=== PATIENT | male | born 1940 | race Caucasian/White ===

== ENCOUNTER 2017-07-10 20:33 | Emergency (ER) | payer MEDICARE ==
--- NOTE | 2017-07-10 21:35 | RAD ---
INDICATION: Cough COMPARISON: Chest x-ray May 27, 2010 TECHNIQUE: PA and lateral dual-energy views were obtained. FINDINGS: Bones/Soft Tissues: There are no acute bony findings. Cardiomediastinal: The cardiomediastinal silhouette is normal. Lungs: There are no infiltrates. Pleura: There are no pleural effusions. Other: None IMPRESSION: NO ACTIVE DISEASE.
[2017-07-11] MEDS ORDERED: Azithromycin TAB* 250 MG ONE (00:05)
--- NOTE | 2017-07-11 00:05 | ED ---
Respiratory - HPI Summary HPI Summary: 77 male presents to ED with complaints of productive cough, aches, feeling illl and run down for the past week. Denies fever/chills. No vomiting or nausea. Denies SOB or trouble breathing, only when having coughing fit. Denies any other complaints. No headache or nasal congestion. Denies respiratory PMHx. Has been around sick contacts. Has been taking tylenol daily, and OTC could and congestion medication. Has helped break up mucus per patient. PRoduction is mucus like without hemoptysis. No chest pain. - History of Current Complaint Chief Complaint: EDUpperRespComplaint Stated Complaint: GENERAL SICKNESS/COUGH Time Seen by Provider: 07/10/17 23:22 Hx Obtained From: Patient Onset/Duration: Sudden Onset, Lasting Weeks, Still Present Timing: Constant Initial Severity: Mild Current Severity: Moderate Pain Intensity: 0 Character: Cough (Productive) Sputum Amount: Small Sputum Color: Clear, Yellow, Green Aggravating Factor(s): URI Alleviating Factor(s): OTC Medications Associated Signs and Symptoms: URI - Allergy/Home Medications Allergies/Adverse Reactions: Allergies Allergy/AdvReac Type Severity Reaction Status Date / Time morphine Allergy Hallucinati Verified 07/10/17 21:00 ons PMH/Surg Hx/FS Hx/Imm Hx Endocrine/Hematology History: Reports: Hx Anticoagulant Therapy - ASA, coumadin Denies: Hx Diabetes, Hx Thyroid Disease Cardiovascular History: Reports: Hx Atrial Fibrillation, Hx Hypertension Denies: Hx Pacemaker/ICD Respiratory History: Denies: Hx Asthma, Hx Chronic Obstructive Pulmonary Disease (COPD) History: Denies: Hx Renal Disease Musculoskeletal History: Reports: Hx Arthritis, Hx Back Problems Neurological History: Denies: Hx Dementia, Hx Seizures Psychiatric History: Reports: Hx Anxiety, Hx Depression Denies: Hx Substance Abuse - Surgical History Surgery Procedure, Year, and Place: right ankle and foot surgery in 1985 - Immunization History Immunizations Up to Date: Yes Infectious Disease History: No Infectious Disease History: Denies: Hx Hepatitis, Hx Human Immunodeficiency Virus (HIV), Traveled Outside the [place] in Last 30 Days - Family History Known Family History: Positive: Diabetes - Social History Alcohol Use: Weekly Alcohol Amount: pt daughter states pt drinks "heavily" Substance Use Type: Reports: None Hx Tobacco Use: Yes Smoking Status (MU): Light Every Day Tobacco Smoker Type: Cigarettes, Cigars Length of Time of Smoking/Using Tobacco: 60 years Review of Systems Constitutional: Negative ENT: Negative Cardiovascular: Negative Positive: Cough Gastrointestinal: Negative All Other Systems Reviewed And Are Negative: Yes Physical Exam Triage Information Reviewed: Yes Vital Signs On Initial Exam: Initial Vitals Temp Pulse Resp BP Pulse Ox 98.9 F 67 20 144/59 97 07/10/17 20:56 07/10/17 20:56 07/10/17 20:56 07/10/17 20:56 07/10/17 20:56 Vital Signs Reviewed: Yes Appearance: Positive: Well-Appearing, No Pain Distress, Well-Nourished Skin: Positive: Warm, Skin Color Reflects Adequate Perfusion, Dry Head/Face: Positive: Normal Head/Face Inspection ENT: Positive: Hearing grossly normal, Pharynx normal, TMs normal, Tonsillar exudate, Uvula midline. Negative: Pharyngeal erythema, Nasal congestion, Tonsillar swelling Neck: Positive: Supple, Nontender, No Lymphadenopathy Respiratory/Lung Sounds: Positive: Clear to Auscultation, Breath Sounds Present , Wheezes - upper, bilateral, clears with cough. Negative: Decreased Breath Sounds, Rales, Rhonchi, Unable to speak in full sentences Cardiovascular: Positive: Normal, RRR, Pulses are Symmetrical in both Upper and Lower Extremities, Murmur, Rub Abdomen Description: Positive: Nontender Bowel Sounds: Positive: Present Musculoskeletal: Positive: Normal Neurological: Positive: Normal Diagnostics - Vital Signs Vital Signs Temp Pulse Resp BP Pulse Ox 07/10/17 23:26 99.4 F 07/10/17 23:14 102.0 F 65 12 157/70 100 07/10/17 20:56 98.9 F 67 20 144/59 97 - Laboratory Lab Results: Lab Results 07/10/17 Range/Units 21:15 Influenza A (Rapid) Negative (Negative) Influenza B (Rapid) Negative (Negative) Lab Statement: Any lab studies that have been ordered have been reviewed, and results considered in the medical decision making process. - Radiology chest Xray Interpretation: No Acute Changes - no active disease Radiology Interpretation Completed By: Radiologist Disposition - Course Course Of Treatment: appears to be suffering from bronchitis/URI. azithromycin and continue decongestant. fluids, rest. normal vitals, non hypoxic. continue tylenol, give dose aat ED. no other concerns at this time. chest xray obtained and negative. influenza obtained and negative. did have flu shot this year. follow up pcp. aware of worsening signs and symptoms to watch out for. - Differential Dx - Cardiopulmonary Differential Diagnoses - Cardiopulmonary: Bronchitis, Lower Resp Infection, Other - URI - Diagnoses Provider Diagnoses: URI (upper respiratory infection), Bronchitis Discharge - Discharge Plan Condition: Stable Disposition: HOME Prescriptions: Azithromycin TAB* [Zithromax TAB (Z-MARYBETH) 250 mg #6 tabs] 250 mg PO DAILY #4 tab Patient Education Materials: Acute Bronchitis (ED) Referrals: Elly Doherty [Primary Care Provider] - Additional Instructions: Continue tylenol as needed for pain and fever. Take prescribed antibitoic as directed tomorrow morning. Increase fluid intake. Continue decongestant and over the counter cough suppressant. Extra pillow at bedtime. Any new or worsening symptoms please seek medical attention promptly. Follow up with PCP to ensure improvement.
[2017-07-11] MEDS: Azithromycin TAB* 250 MG PO ONE (00:11)
[2017-07-11] MEDS: Acetaminophen TAB* 325 MG PO ONE (00:11)
[2017-07-11 00:17] VITALS: BP 162/72
== END 2017-07-11 00:16 | disposition home or self-care (01) ==
LOC: ED 20:33
DX: J06.9 Acute upper respiratory infection, unspecified (principal); J40 Bronchitis, not specified as acute or chronic; F17.210 Nicotine dependence, cigarettes, uncomplicated; F17.290 Nicotine dependence, other tobacco product, uncomplicated; Z88.5 Allergy status to narcotic agent
CPT/HCPCS: 71046; 87502; 99282; A9270-GY

== ENCOUNTER 2017-07-12 10:05 | Inpatient (IN) | payer MEDICARE ==
--- NOTE | 2017-07-12 11:03 | RAD ---
HISTORY: Weakness, bronchitis COMPARISONS: July 10, 2017 VIEWS: 2: Frontal and lateral views of the chest. FINDINGS: CARDIOMEDIASTINAL SILHOUETTE: The cardiomediastinal silhouette is normal. BOBBI: The bobbi are normal. PLEURA: The costophrenic angles are sharp. No pleural abnormalities are noted. LUNG PARENCHYMA: The lungs are clear. ABDOMEN: The upper abdomen is clear. There is no subphrenic gas. BONES AND SOFT TISSUES: Degenerative changes are noted of the spine OTHER: None. IMPRESSION: NO ACTIVE CARDIOPULMONARY DISEASE.
[2017-07-12 11:15] LABS: ABS Basophils 0.1 10^3/ul (0-0.2); ABS Eosinophils 0 10^3/ul (0-0.6); ABS Lymphocytes 0.8 10^3/ul (1.0-4.8); ABS Monocytes 0.8 10^3/ul (0-0.8); ABS Neutrophils 5.3 10^3/ul (1.5-7.7); ABS Nucleated RBC 0 10^3/ul; Eosinophil % 0.2 % (0-6); Hematocrit 47 % (42-52); Hemoglobin 16.1 g/dl (14.0-18.0); Lymphocyte % 11.2 % (25-47); Mean Corpuscular HGB Conc 34 g/dl (31-36); Mean Corpuscular Hemoglobin 32 pg (27-31); Mean Corpuscular Volume 94 fL (80-94); Mean Platelet Volume 9 um3 (7.4-10.4); Nucleated Red Blood Cells % 0; Platelet Count 152 10^3/ul (150-450); Red Blood Count 5.01 10^6/ul (4.0-5.4); Red Cell Distribution Width 14 % (10.5-15); White Blood Count 6.9 10^3/ul (3.5-10.8)
[2017-07-12 11:32] LABS: EGFR Non-African American 65.4 (>60)
[2017-07-12] MEDS ORDERED: Albuterol 2.5 MG/3 ML NEB.SOL* (0.083%) INH ONE (13:05)
[2017-07-12] MEDS ORDERED: methylPREDNISolone 125 MG* 2 ML VIAL IV ONE (13:05)
[2017-07-12] MEDS ORDERED: guaiFENesin LIQ* 100 MG/5 ML UDC PO ONE (13:06)
[2017-07-12] MEDS ORDERED: NS 0.9% 1000 ML* 1,000 ML BOLUS SCH (13:15)
--- NOTE | 2017-07-12 13:52 | RAD ---
HISTORY: Fall on anticoagulation COMPARISONS: May 27, 2010 TECHNIQUE: Multiple contiguous axial CT scans were obtained of the head without intravenous contrast. FINDINGS: HEMORRHAGE/INFARCT: There is no hemorrhage or acute infarct. MASSES/SHIFT: There is no mass or shift. EXTRA-AXIAL SPACES: There are no extra-axial fluid collections. SULCI AND VENTRICLES: The sulci and ventricles are normal in size and position for the patient's stated age. CEREBRUM: There are no focal parenchymal abnormalities. BRAINSTEM: There are no focal parenchymal abnormalities. CEREBELLUM: There are no focal parenchymal abnormalities. VESSELS: The vessels are grossly normal. PARANASAL SINUSES: There is post surgical changes to the sinuses. There is mucosal thickening of the ethmoid air cells and maxillary sinuses. There is near-fluid levels of the sphenoid sinus. ORBITS: The orbits are unremarkable. BONES AND SOFT TISSUE: No bone or soft tissue abnormalities are noted. OTHER: None IMPRESSION: NO ACUTE INTRACRANIAL PATHOLOGY. MODERATE SINUS MUCOSAL INFLAMMATORY DISEASE, WITH AN AIR-FLUID LEVEL IN THE SPHENOID SINUS. IN THE CORRECT CLINICAL SETTING, THIS MAY REPRESENT ACUTE SINUSITIS
[2017-07-12 15:35] LABS: INR 1.29 (0.77-1.02)
[2017-07-12] MEDS ORDERED: Magnesium Hydroxide LIQ* 30 ML UDC PO PRN (15:45)
[2017-07-12] MEDS ORDERED: Al Hydrox/Mg Hydrox/Simet LIQ* 30 ML UDC PO PRN (15:45)
[2017-07-12] MEDS ORDERED: Albuterol 2.5 MG/3 ML NEB.SOL* (0.083%) INH PRN (15:45)
[2017-07-12] MEDS ORDERED: guaiFENesin LIQ* 100 MG/5 ML UDC PO PRN (16:12)
[2017-07-12] MEDS ORDERED: Warfarin TAB(*) 3 MG PO SCH (17:00)
[2017-07-12 18:17] LABS: Urine Appearance Clear; Urine Blood 3+ (Negative); Urine Color Straw; Urine Ketones 1+ (Negative); Urine Protein Negative (Negative); Urine Specific Gravity 1.008 (1.010-1.030); Urine Urobilinogen Negative (Negative)
[2017-07-12] MEDS: Azithromycin TAB* 250 MG PO SCH (18:17)
[2017-07-12] MEDS: NS 0.9% 1000 ML* 1,000 ML IV SCH (20:10)
[2017-07-12] MEDS: Atorvastatin* 10 MG TAB PO SCH (20:36)
[2017-07-12] MEDS: Heparin VIAL(*) 5000 UNITS/ML VIAL (FIVE THOUSAND) SUBCUT SCH (20:38)
--- NOTE | 2017-07-12 22:11 | HP ---
AMENDED REPORT NOW INCLUDES COSIGNER DESIGNATION - ESIGNED BEFORE ADJUSTMENT CC: ZUHAIR Jeronimo * HISTORY AND PHYSICAL: DATE OF ADMISSION: 07/12/17 PROVIDER: Addie Case NP ATTENDING WHILE IN THE HOSPITAL: Ebony Mcdonough DO * (dictated by Addie Case NP). CHIEF COMPLAINT: 1. Fall. 2. Weakness. HISTORY OF PRESENT ILLNESS: Mr. Jerome is a 77-year-old male who carries a history of hyperlipidemia, AFib, hypertension and anxiety who presented to the emergency room after a fall and the patient states that he fell approximately at 9 p.m. last night and laid on the floor until 9 a.m. this morning when he was able to call through the heat register in his apartment for help. The patient states the he was leaning forward and bent forward too far and fell to the ground. He denies any head injury, denied any loss of consciousness, denied any neck pain. He states that he was unable to get up off the floor, so he laid there throughout the night. The patient was also unable to get to a phone to call for help. The patient states that in the past, it has been hard for him to get up off of the floor by himself. Today, he complains of muscle and joint aches from being on the floor all night and complains of feeling tired. He denies any chest pain or shortness of breath. Denies any nausea, vomiting, or diarrhea and denies any abdominal pain. Denies any recent fevers, but does report occasional chills. Denies any dysuria. The patient also reports that he was seen here on for a cough that started on Friday. He was diagnosed with bronchitis and started on Zithromax. He says that he has taken 2 days worth of Zithromax and continues to have a productive cough with white to luna sputum. We were contacted by the emergency room to evaluate for admission because of his rhabdomyolysis and fall. PAST MEDICAL HISTORY: 1. Hyperlipidemia. 2. Atrial fibrillation. 3. Hypertension. 4. Anxiety. PAST SURGICAL HISTORY: 1. Spinal fusion, lumbar fusion in 1999. 2. Cholecystectomy in 1981. HOME MEDICATIONS: Include: 1. Pravastatin 40 mg p.o. daily. 2. Azithromycin 250 mg p.o. daily. 3. Atenolol 50 mg p.o. daily. 4. Warfarin 2 mg p.o. daily. 5. Citalopram 10 mg p.o. daily. ALLERGIES TO MEDICATIONS: MORPHINE. FAMILY HISTORY: Mother had a stroke, mother also had diabetes. No report of cancer within the family. SOCIAL HISTORY: The patient states that he quit smoking approximately 1 month ago. Prior to that, he would smoke 1 pack per month. He reports that he drinks 4 to 5 beers per week generally on the weekends. Denies any illicit drug use. 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 His surrogate decision maker in the event he is unable to make his own medical decision is his daughter , Nata. Her telephone number is [phone]. REVIEW OF SYSTEMS: There has been no documented fever. No significant weight change. There was no double vision. No ear discharge. Denies having any rhinorrhea. No sore throat. Denies chest pain. Denies orthopnea or nocturnal dyspnea. No abdominal pain. Denies nausea, vomiting or diarrhea. Denies dysuria, denies frequency. Denies any loss of consciousness. No pruritus. Does report abrasions to bilateral knees and elbows. A review of 14 systems was completed and all others are negative. PHYSICAL EXAMINATION GENERAL: At this time, Mr. Jerome is a 77-year-old male who appears well, lying on the stretcher in the emergency room. He does not appear to be in any acute distress. VITAL SIGNS: Temperature was 99.8, heart rate was 66, respirations are 20, O2 saturations was 96% on room air, blood pressure 132/65. HEENT: Head is atraumatic, normocephalic. Eyes: EOMs are intact. Sclerae anicteric, not pale. Oral mucosa appeared to be moist. No oropharyngeal erythema. NECK: Supple. LUNGS: Wheezes bilaterally and diminished throughout. There are no rales or rhonchi. CARDIAC: S1, S2. Irregular rate. There are no murmurs, rubs or gallops. ABDOMEN: Soft and nontender. Bowel sounds are present x4. EXTREMITIES: Pulses are +2 throughout. He is able to move all 4 extremities with 5/5 strength. NEUROLOGIC: He is awake, alert and oriented x3. His speech is clear. There are no focal deficits noted. SKIN: Intact. He does have abrasions to bilateral knees and elbows with redness and ecchymosis noted. DIAGNOSTIC STUDIES AND LABORATORY DATA: WBC 6.9, RBC 5.01, hemoglobin 16.1, hematocrit was 47, platelet count was 152. INR was 1.29. Sodium 133, potassium 3.8, chloride was 100, carbon dioxide was 24, anion gap was 9, BUN was 17, creatinine 1.09. Lactic acid was 1.5, glucose was 90, calcium 9.6. ASTs were 164, ALTs were 29, alk phos was 61. Total creatine kinase was 12, 067. CK-MB was 54.2, troponin was 0.03, albumin was 4.3, globin was 3.8. EKG shows AFib with a rate of 90. Chest x-ray: No acute cardiopulmonary disease. CT of the brain: No acute intracranial pathology, moderate sinus mucosal inflammatory disease with an air fluid level in the sphenoid sinus. In the correct clinical setting, this may represent acute sinusitis. ASSESSMENT AND PLAN: Mr. Jerome is a 77-year-old male, presented to the emergency room today after a fall and lying on the floor for 12 hours. We were asked to evaluate due to his weakness and rhabdomyolysis. He will be admitted inpatient for: 1. Rhabdomyolysis: I suspect this is related to falling and lying on the floor for 12 hours. We will give him aggressive IV hydration with normal saline at 200 cc per hour for 2 liters then decrease to 100 cc/hr. We will repeat his CK in 6 hours and again in the morning. 2. Atrial fibrillation: We will continue him on his Coumadin. We will give him 3 mg today due to his subtherapeutic INR of 1.29. 3. Hypertension: Continue his metoprolol 50 mg p.o. daily. 4. Hyperlipidemia: We will continue his Pravachol 40 mg p.o. daily. 5. Anxiety is stable. We will continue his Celexa 10 mg p.o. daily. 6. FEN: We will continue him on a heart healthy, caffeine okay diet. 7. Code status: He is a full code. 8. DVT prophylaxis: We will place him on heparin 5000 units subcu q.8 hours as his INR is subtherapeutic and the patient is currently on Coumadin. 9. Disposition: He will be placed inpatient on the medical floor. TIME SPENT: Time spent on this admission was approximately 60 minutes, greater than half that time was spent [id number] with the patient obtaining medical history and physical. The other half the time was spent going over his plan of care and implementing the plan of care. I discussed this plan with my attending, Dr. Ebony Mcdonough, and she is in agreement with my plan. ADDIE CASE, MELTER SUPER[employer]OR [employer] [id number]/CPS #: [id number] MIGUEL
[2017-07-13] MEDS: NS 0.9% 1000 ML* 1,000 ML IV SCH ×4 (01:19→14:53)
[2017-07-13 05:53] LABS: ABS Basophils 0 10^3/ul (0-0.2); ABS Eosinophils 0 10^3/ul (0-0.6); ABS Lymphocytes 0.6 10^3/ul (1.0-4.8); ABS Monocytes 0.2 10^3/ul (0-0.8); ABS Neutrophils 4.5 10^3/ul (1.5-7.7); ABS Nucleated RBC 0 10^3/ul; Eosinophil % 0 % (0-6); Hematocrit 42 % (42-52); Hemoglobin 14.5 g/dl (14.0-18.0); INR 1.22 (0.77-1.02); Lymphocyte % 11.8 % (25-47); Mean Corpuscular HGB Conc 35 g/dl (31-36); Mean Corpuscular Hemoglobin 32 pg (27-31); Mean Corpuscular Volume 93 fL (80-94); Mean Platelet Volume 9 um3 (7.4-10.4); Nucleated Red Blood Cells % 0.1; Platelet Count 142 10^3/ul (150-450); Red Blood Count 4.53 10^6/ul (4.0-5.4); Red Cell Distribution Width 14 % (10.5-15); White Blood Count 5.3 10^3/ul (3.5-10.8)
[2017-07-13 06:01] LABS: EGFR Non-African American 84.9 (>60)
[2017-07-13] MEDS: Heparin VIAL(*) 5000 UNITS/ML VIAL (FIVE THOUSAND) SUBCUT SCH ×3 (06:15→21:41)
[2017-07-13] MEDS: Azithromycin TAB* 250 MG PO SCH (08:47)
[2017-07-13] MEDS: Atenolol TAB* 25 MG PO SCH (08:47)
[2017-07-13] MEDS: Citalopram TAB* 10 MG PO SCH (08:47)
[2017-07-13] MEDS: Atorvastatin* 10 MG TAB PO SCH (08:48)
[2017-07-13] MEDS ORDERED: guaiFENesin ER TAB 600 MG PO ONE (17:30)
--- NOTE | 2017-07-13 17:38 | PN ---
Subjective Date of Service: 07/13/17 Interval History: complaint of cough. CK falling. able to walk with PT. 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 checks his coumadin every 2-3 months. Objective Active Medications: Acetaminophen (Tylenol Tab*) 650 mg PO Q4H PRN PRN Reason: FEVER/PAIN Al Hydrox/Mg Hydrox/Simethicone (Maalox Plus*) 30 ml PO Q6H PRN PRN Reason: INDIGESTION Albuterol (Ventolin 2.5 Mg/3 Ml Neb.Dionne*) 2.5 mg INH [id number] AWAKE PRN PRN Reason: sob/wheezing Atenolol (Tenormin Tab*) 50 mg PO DAILY [facility] Last Admin: 07/13/17 08:47 Dose: 50 mg Atorvastatin Calcium (Lipitor*) 10 mg PO DAILY [facility] PRN Reason: Protocol Last Admin: 07/13/17 08:48 Dose: 10 mg Azithromycin (Zithromax Tab*) 250 mg PO DAILY [facility] Stop: 07/14/17 09:01 Last Admin: 07/13/17 08:47 Dose: 250 mg Citalopram Hydrobromide (Celexa Tab*) 10 mg PO DAILY [facility] Last Admin: 07/13/17 08:47 Dose: 10 mg Guaifenesin (Robitussin*) 5 ml PO Q6H PRN PRN Reason: COUGH Guaifenesin (Mucinex*) 600 mg PO ONCE ONE Stop: 07/13/17 17:31 Heparin Sodium (Porcine) (Heparin Vial(*)) 5,000 units SUBCUT Q8HR [facility] Last Admin: 07/13/17 14:38 Dose: 5,000 units Sodium Chloride (Ns 0.9% 1000 Ml*) 1,000 mls @ 200 mls/hr IV PER RATE [facility] Stop: 07/13/17 20:44 Last Admin: 07/13/17 01:21 Dose: 200 mls/hr Sodium Chloride (Ns 0.9% 1000 Ml*) 1,000 mls @ 200 mls/hr IV PER RATE [facility] Stop: 07/13/17 17:44 Last Admin: 07/13/17 14:53 Dose: 200 mls/hr Magnesium Hydroxide (Milk Of Magnesia Liq*) 30 ml PO Q4H PRN PRN Reason: CONSTIPATION Warfarin Sodium (Coumadin Tab(*)) 3 mg PO DAILY@1700 [facility] PRN Reason: Protocol Vital Signs - 8 hr 07/13/17 07/13/17 12:04 15:27 Temperature 98.1 F Pulse Rate 85 79 Respiratory 18 20 Rate Blood Pressure 120/63 140/53 (mmHg) O2 Sat by Pulse 96 96 Oximetry Oxygen Devices in Use Now: None Appearance: NAD, lying in bed Ears/Nose/Mouth/Throat: NL Teeth, Lips, Gums Neck: NL Appearance and Movements; NL JVP Respiratory: Symmetrical Chest Expansion and Respiratory Effort, Clear to Auscultation Cardiovascular: NL Sounds; No Murmurs; No JVD, RRR Extremities: No Edema, No Clubbing, Cyanosis Skin: No Rash or Ulcers, No Nodules or Sclerosis Neurological: Alert and Oriented x 3, NL Sensation, NL Muscle Strength and Tone Nutrition: Taking PO's Result Diagrams: 07/13/17 05:01 07/13/17 05:01 Additional Lab and Data: Laboratory Results - last 24 hr 07/12/17 07/12/17 07/13/17 18:00 20:01 05:01 WBC RBC Hgb Hct MCV MCH MCHC RDW Plt Count MPV Neut % (Auto) Lymph % (Auto) [place] % (Auto) Eos % (Auto) Baso % (Auto) Absolute Neuts (auto) Absolute Lymphs (auto) Absolute Monos (auto) Absolute Eos (auto) Absolute Basos (auto) Absolute Nucleated RBC Nucleated RBC % INR (Anticoag Therapy) Sodium 139 Potassium 3.8 Chloride 109 Carbon Dioxide 23 Anion Gap 7 BUN 16 Creatinine 0.87 Est GFR ( Amer) 109.1 Est GFR (Non-Af Amer) 84.9 BUN/Creatinine Ratio 18.4 Glucose 169 H Calcium 8.8 Total Creatine Kinase 6745 H CK-MB (CK-2) 33.9 H 24.5 H Urine Color Straw Urine Appearance Clear Urine pH 5.0 Ur Specific [place] 1.008 L Urine Protein Negative Urine Ketones 1+ H Urine Blood 3+ H Urine Nitrate Negative Urine Bilirubin Negative Urine Urobilinogen Negative Ur Leukocyte Esterase Negative Urine WBC (Auto) Trace(0-5/hpf) Urine RBC (Auto) Absent Urine Bacteria 1+ H Urine Glucose Negative 07/13/17 07/13/17 05:01 05:01 WBC 5.3 RBC 4.53 Hgb 14.5 Hct 42 MCV 93 MCH 32 H MCHC 35 RDW 14 Plt Count 142 L MPV 9 Neut % (Auto) 85.1 H Lymph % (Auto) 11.8 L [place] % (Auto) 3.0 Eos % (Auto) 0 Baso % (Auto) 0.1 Absolute Neuts (auto) 4.5 Absolute Lymphs (auto) 0.6 L Absolute Monos (auto) 0.2 Absolute Eos (auto) 0 Absolute Basos (auto) 0 Absolute Nucleated RBC 0 Nucleated RBC % 0.1 INR (Anticoag Therapy) 1.22 H Sodium Potassium Chloride Carbon Dioxide Anion Gap BUN Creatinine Est GFR ( Amer) Est GFR (Non-Af Amer) BUN/Creatinine Ratio Glucose Calcium Total Creatine Kinase CK-MB (CK-2) Urine Color Urine Appearance Urine pH Ur Specific [place] Urine Protein Urine Ketones Urine Blood Urine Nitrate Urine Bilirubin Urine Urobilinogen Ur Leukocyte Esterase Urine WBC (Auto) Urine RBC (Auto) Urine Bacteria Urine Glucose Assess/Plan/Problems-Billing Assessment: 77 yo male PMH Afib on coumadin, HTN, anxiety, HLD p/w mechanical fall with inability to get up for 12 hours. Rhabo, recent URI symptoms on azithromycin. CK improving. - Patient Problems (1) Rhabdomyolysis Current Visit: Yes Status: Acute Code(s): M62.82 - RHABDOMYOLYSIS SNOMED Code(s): 654690751 Comment: CK down [place] 6745 from 81067 continue IVF 200cc/hr BMP, CK in AM. life alert bracelet PT (2) HTN (hypertension) Current Visit: Yes Status: Acute Code(s): I10 - ESSENTIAL (PRIMARY) HYPERTENSION SNOMED Code(s): 12669424 Comment: home atenolol 50mg daily. (3) Atrial fibrillation, chronic Current Visit: No Status: Chronic Code(s): I48.2 - CHRONIC ATRIAL FIBRILLATION SNOMED Code(s): 694523525 Comment: continue increased coumadin dose of 3mg. regular is 2mg. more frequent INRs as outpatient. Status and Disposition: medicine inpatient, likely d/c 07/14
[2017-07-13] MEDS: Warfarin TAB(*) 3 MG PO SCH (18:08)
--- NOTE | 2017-07-13 20:30 | ED ---
Osito Guerra Natalie, scribed for July Low MD on 07/12/17 at 1312 . Syncope/Near Syncope - HPI Summary HPI Summary: The patient is a 77 y/o M presenting to the ED c/o weakness s/p falling at 21: 00 yesterday. The patient was unable to get up, so he laid on the floor until 09 :00 this morning. The patient lives by himself, and neighbor helped him up after he yelled to her through the vent on the floor of his apartment. He does not complain of any injuries except bruises on bilateral elbows. He states he did not hit his head, and there was no LOC. He hasnt eaten in 24 hours. He has also been wheezing since 07/10/17, when he came to the ED and was diagnosed with bronchitis and had a fever of 102F. He was given Azithromycin, which he has been taking since. He also takes Atenolol 25 mg, Pravastatin 50mg, Coumadin 2 mg, Citalopram, and Coricidin. His PCP is Dr. Elly Argueta at [facility] in [place]. He states he does not have a hx of COPD. He is a former smoker. - History Of Current Complaint Chief Complaint: EDGeneral Time Seen by Provider: 07/12/17 10:30 Hx Obtained From: Patient Onset/Duration: Sudden Onset, Lasting Hours - started yesterday at 21:00, Still Present Context: Unwitnessed Activity At Onset: Other - bending over Associated Head Trauma: No Aggravating Factor(s): Position Change Alleviating Factor(s): Nothing Associated Signs And Symptoms: Weakness, Other - wheezing, bruises on elbows, states did not hit head, no LOC - Allergies/Home Medications Allergies/Adverse Reactions: Allergies Allergy/AdvReac Type Severity Reaction Status Date / Time morphine Allergy Hallucinati Verified 07/10/17 21:00 ons Home Medications: Home Medications Atenolol TAB* [Tenormin TAB* 25 MG] 50 mg PO DAILY 07/12/17 [History Confirmed 07/12/17] Citalopram TAB* [Celexa TAB*] 10 mg PO DAILY 07/12/17 [History Confirmed ] Pravastatin (NF) [Pravachol (NF)] 40 mg PO DAILY 07/12/17 [History Confirmed ] PMH/Surg Hx/FS Hx/Imm Hx Previously Healthy: No Endocrine/Hematology History: Reports: Hx Anticoagulant Therapy - ASA, coumadin Denies: Hx Diabetes, Hx Thyroid Disease Cardiovascular History: Reports: Hx Atrial Fibrillation, Hx Hypertension Denies: Hx Pacemaker/ICD Respiratory History: Denies: Hx Asthma, Hx Chronic Obstructive Pulmonary Disease (COPD) History: Denies: Hx Renal Disease Musculoskeletal History: Reports: Hx Arthritis, Hx Back Problems Neurological History: Denies: Hx Dementia, Hx Seizures Psychiatric History: Reports: Hx Anxiety, Hx Depression Denies: Hx Substance Abuse - Surgical History Surgery Procedure, Year, and Place: right ankle and foot surgery in 1985 Infectious Disease History: No Infectious Disease History: Denies: Hx Hepatitis, Hx Human Immunodeficiency Virus (HIV), Traveled Outside the [place] in Last 30 Days - Family History Known Family History: Positive: Diabetes - Social History Lives: Alone Alcohol Use: Weekly Alcohol Amount: pt daughter states pt drinks "heavily" Hx Substance Use: Yes Substance Use Type: Reports: None Hx Tobacco Use: Yes Smoking Status (MU): Former Smoker Type: Cigarettes, Cigars Length of Time of Smoking/Using Tobacco: 60 years Review of Systems Constitutional: Negative Eyes: Negative Cardiovascular: Negative Positive: Other - wheezing Positive: Bruising - both elbows Neurological: Other - no LOC Positive: Weakness Psychological: Normal All Other Systems Reviewed And Are Negative: Yes Physical Exam Triage Information Reviewed: Yes Vital Signs On Initial Exam: Initial Vitals Temp Pulse Resp BP Pulse Ox 99.6 F 106 22 119/83 94 07/12/17 10:10 07/12/17 10:10 07/12/17 10:10 07/12/17 10:10 07/12/17 10:10 Vital Signs Reviewed: Yes Appearance: Positive: Well-Nourished, Ill-Appearing, Pain Distress - mild Skin: Positive: Warm, Dry, Other - Superficial abrasion on right elbow with redness of 8cm, left and right knees and lower leg multiple superficial abrasions with surrounding redness Head/Face: Positive: Normal Head/Face Inspection Eyes: Positive: Conjunctiva Clear ENT: Positive: Normal ENT inspection Neck: Positive: Supple Respiratory/Lung Sounds: Positive: Wheezes, Other - Wheezing, no respiratory distress Cardiovascular: Positive: Other - Atrial fibrillation, no murmur, pulses normal , brisk capillary refill Abdomen Description: Positive: Nontender, Soft Bowel Sounds: Positive: Present Musculoskeletal: Positive: Strength/ROM Intact Neurological: Positive: Other - Alert, muscle tone normal, facial symmetry, speech normal, sensory/motor intact Psychiatric: Positive: Normal AVPU Assessment: Alert - [place] Coma Scale Best Eye Response: 4 - Spontaneous Best Motor Response: 6 - Obeys Commands Best Verbal Response: 5 - Oriented Coma Scale Total: 15 Diagnostics - Vital Signs Vital Signs Temp Pulse Resp BP Pulse Ox 07/12/17 13:00 79 20 139/97 93 07/12/17 12:30 25 139/89 07/12/17 12:15 97 22 145/84 93 07/12/17 12:00 78 22 95 07/12/17 11:07 19 07/12/17 10:30 84 22 130/71 91 07/12/17 10:16 96 26 95 07/12/17 10:10 99.6 F 106 22 119/83 94 - Laboratory Lab Results: Lab Results 07/12/17 07/12/17 07/12/17 Range/Units 11:08 11:08 11:08 WBC 6.9 (3.5-10.8) 10^3/ul RBC 5.01 (4.0-5.4) 10^6/ul Hgb 16.1 (14.0-18.0) g/dl Hct 47 (42-52) % MCV 94 (80-94) fL MCH 32 H (27-31) pg MCHC 34 (31-36) g/dl RDW 14 (10.5-15) % Plt Count 152 (150-450) 10^3/ul MPV 9 (7.4-10.4) um3 Neut % (Auto) 76.6 (38-83) % Lymph % (Auto) 11.2 L (25-47) % [place] % (Auto) 11.2 H (1-9) % Eos % (Auto) 0.2 (0-6) % Baso % (Auto) 0.8 (0-2) % Absolute Neuts (auto) 5.3 (1.5-7.7) 10^3/ul Absolute Lymphs (auto) 0.8 L (1.0-4.8) 10^3/ul Absolute Monos (auto) 0.8 (0-0.8) 10^3/ul Absolute Eos (auto) 0 (0-0.6) 10^3/ul Absolute Basos (auto) 0.1 (0-0.2) 10^3/ul Absolute Nucleated RBC 0 10^3/ul Nucleated RBC % 0 Sodium 133 (133-145) mmol/L Potassium 3.8 (3.5-5.0) mmol/L Chloride 100 L (101-111) mmol/L Carbon Dioxide 24 (22-32) mmol/L Anion Gap 9 (2-11) mmol/L BUN 17 (6-24) mg/dL Creatinine 1.09 (0.67-1.17) mg/dL Est GFR ( Amer) 84.1 (>60) Est GFR (Non-Af Amer) 65.4 (>60) BUN/Creatinine Ratio 15.6 (8-20) Glucose 90 (70-100) mg/dL Lactic Acid 1.5 (0.5-2.0) mmol/L Calcium 9.6 (8.6-10.3) mg/dL Total Bilirubin 0.80 (0.2-1.0) mg/dL AST 164 H (13-39) U/L ALT 29 (7-52) U/L Alkaline Phosphatase 61 (34-104) U/L Total Creatine Kinase 85629 H (10-223) U/L CK-MB (CK-2) 54.2 H (0.6-6.3) ng/mL Troponin I 0.03 (<0.04) ng/mL Total Protein 8.0 (6.4-8.9) g/dL Albumin 4.2 (3.2-5.2) g/dL Globulin 3.8 (2-4) g/dL Albumin/Globulin Ratio 1.1 (1-3) Result Diagrams: 07/13/17 05:01 07/15/17 06:54 Lab Statement: Any lab studies that have been ordered have been reviewed, and results considered in the medical decision making process. - Radiology CXR Xray Interpretation: No Acute Changes - No active cardiopulmonary disease. ED physician has reviewed this report. Radiology Interpretation Completed By: Radiologist - CT Brain CT Interpretation: No Acute Changes - No acute intracranial pathology. Moderate sinus mucosal inflammatory disease, with an air-fluid level in the sphenoid Sinus. In the correct clinical setting, this may represent acute sinusitis. ED physician has reviewed this report. CT Interpretation Completed By: Radiologist - EKG 11:01 Cardiac Rate: NL EKG Rhythm: Atrial Flutter ST Segment: Non-Specific Ectopy: None EKG Interpretation: Nml IVCT. Nml QTc. Negative axis -16. EKG Comparison: No Significant Change - Change in rhythm from 04/17/16 Re-Evaluation - Re-Evaluation First Eval Re-Evaluation Time: 13:00 - coughing. No CP. Advised he will be admitted. Change: Unchanged Course/Dx Course Of Treatment: Allergies reviewed. Pt medications reviewed during this visit. Pt does not want his daughter to be called. The patient will be admitted to [facility] by Dr. Mcdonough. - Diagnoses Provider Diagnoses: Rhabdomyolysis, Atrial fibrillation, chronic, Bronchospasm with bronchitis, acute - Physician Notifications Discussed Care of Patient With: Ebony Mcdonough - Charlie spoke with Dr. Mcdonough, who accepted the patient as an admit. Time Discussed With Above Provider: 13:05 Discharge - Discharge Plan Condition: Stable Disposition: ADMITTED TO [facility] The documentation as recorded by the Osito coto Natalie accurately reflects the service I personally performed and the decisions made by , July Low MD.
[2017-07-14] MEDS: CMCS: Melatonin (NF) 3 MG TAB PO PRN ×2 (00:04→22:51)
[2017-07-14] MEDS: Heparin VIAL(*) 5000 UNITS/ML VIAL (FIVE THOUSAND) SUBCUT SCH ×2 (06:24→14:54)
[2017-07-14 06:54] LABS: INR 1.67 (0.77-1.02)
[2017-07-14 06:57] LABS: EGFR Non-African American 97.7 (>60)
[2017-07-14] MEDS: Atenolol TAB* 25 MG PO SCH (07:52)
[2017-07-14] MEDS: Azithromycin TAB* 250 MG PO SCH (07:53)
[2017-07-14] MEDS: Atorvastatin* 10 MG TAB PO SCH (07:53)
[2017-07-14] MEDS: Citalopram TAB* 10 MG PO SCH (07:53)
--- NOTE | 2017-07-14 11:31 | PN ---
Subjective Date of Service: 07/14/17 Interval History: Patient seen and examined at bedside. Denies fever, chills, shortness of breath , chest discomfort, N/V/D. Pt states that he didn't pass out, but fell after leaning over. Family History: Unchanged from Admission Social History: Unchanged from Admission Past Medical History: Unchanged from Admission Objective Active Medications: Acetaminophen (Tylenol Tab*) 650 mg PO Q4H PRN Reason: FEVER/PAIN Al Hydrox/Mg Hydrox/Simethicone (Maalox Plus*) 30 ml PO Q6H PRN Reason: INDIGESTION Albuterol (Ventolin 2.5 Mg/3 Ml Neb.Dionne*) 2.5 mg INH [id number] AWAKE PRN Reason: sob/wheezing Atenolol (Tenormin Tab*) 50 mg PO DAILY SAMINA Atorvastatin Calcium (Lipitor*) 10 mg PO DAILY SAMINA Citalopram Hydrobromide (Celexa Tab*) 10 mg PO DAILY SAMINA Guaifenesin (Robitussin*) 5 ml PO Q6H PRN Reason: COUGH Heparin Sodium (Porcine) (Heparin Vial(*)) 5,000 units SUBCUT Q8HR SAMINA Magnesium Hydroxide (Milk Of Magnesia Liq*) 30 ml PO Q4H PRN Reason: CONSTIPATION Melatonin (Melatonin (Nf)) 3 mg PO BEDTIME PRN; Protocol Reason: SLEEP Warfarin Sodium (Coumadin Tab(*)) 3 mg PO DAILY@1700 [facility] Vital Signs - 8 hr 07/14/17 07/14/17 07/14/17 03:47 07:19 08:00 Temperature 97.6 F 97.7 F Pulse Rate 69 Respiratory 16 20 20 Rate Blood Pressure 131/67 133/70 (mmHg) O2 Sat by Pulse 96 95 Oximetry Oxygen Devices in Use Now: None Appearance: NAD, laying in bed Ears/Nose/Mouth/Throat: Mucous Membranes Moist Respiratory: Symmetrical Chest Expansion and Respiratory Effort, Clear to Auscultation Cardiovascular: NL Sounds; No Murmurs; No JVD, - - Heart rate irregular Abdominal: NL Sounds; No Tenderness; No Distention Extremities: No Edema Skin: No Rash or Ulcers, - - Multiple areas with abrasions to bilateral UEs and LEs Neurological: Alert and Oriented x 3, NL Muscle Strength and Tone Lines/Tubes/Other Access: Clean, Dry and Intact Peripheral IV - site benign Nutrition: Taking PO's Result Diagrams: 07/13/17 05:01 07/14/17 06:26 Additional Lab and Data: Microbiology and Other Data: Microbiology 07/12/17 18:00 Urine Culture - Final Urine No Growth (<1,000 CFU/mL) Assess/Plan/Problems-Billing Assessment: Mr. Jerome is a 77 yo male with PMH significant for Afib on Coumadin, HTN, anxiety, HLD p/w mechanical fall with inability to get up for 12 hours. Rhabo, recent URI symptoms on azithromycin. - Patient Problems (1) Rhabdomyolysis Code(s): M62.82 - RHABDOMYOLYSIS SNOMED Code(s): 774500445 Comment: - CK down to ~ 2800 from 30165 - Continue IVF and recheck labs in the AM - Continue PT (2) HTN (hypertension) Code(s): I10 - ESSENTIAL (PRIMARY) HYPERTENSION SNOMED Code(s): 89117039 Comment: - Normotensive, SBP 130-140s - Continue atenolol (3) Atrial fibrillation, chronic Code(s): I48.2 - CHRONIC ATRIAL FIBRILLATION SNOMED Code(s): 811413519 Comment: - Continue coumadin and atenolol - More frequent INRs as outpatient. (4) HLD (hyperlipidemia) Code(s): E78.5 - HYPERLIPIDEMIA, UNSPECIFIED SNOMED Code(s): 14220043 Comment: - Continue atorvastatin (5) DVT prophylaxis Code(s): XAO9335 - SNOMED Code(s): 893317600 Comment: - Warfarin (6) Full code status Code(s): Z78.9 - OTHER SPECIFIED HEALTH STATUS SNOMED Code(s): 246233709 Status and Disposition: Inpatient. Discharge to home when medically stable, likely d/c in AM
[2017-07-14] MEDS: NS 0.9% 1000 ML* 1,000 ML IV SCH ×2 (11:53→19:20)
[2017-07-14] MEDS: Acetaminophen TAB* 325 MG PO PRN (14:54)
[2017-07-14] MEDS: Warfarin TAB(*) 3 MG PO SCH (17:44)
[2017-07-15] MEDS: Acetaminophen TAB* 325 MG PO PRN ×2 (02:35→13:53)
[2017-07-15] MEDS: NS 0.9% 1000 ML* 1,000 ML IV SCH ×2 (02:37→09:24)
[2017-07-15 07:37] LABS: INR 2.15 (0.77-1.02)
[2017-07-15 07:41] LABS: EGFR Non-African American 105.6 (>60)
[2017-07-15] MEDS: Citalopram TAB* 10 MG PO SCH (08:17)
[2017-07-15] MEDS: Atorvastatin* 10 MG TAB PO SCH (08:17)
[2017-07-15] MEDS: Atenolol TAB* 25 MG PO SCH (08:17)
[2017-07-15] MEDS: Potassium Chlor TAB* 20 MEQ TAB.ER PO ONE ×2 (08:57→08:59)
[2017-07-15 11:02] VITALS: BP 146/73
--- NOTE | 2017-07-15 13:24 | PN ---
Subjective Date of Service: 07/15/17 Interval History: Patient seen and examined at bedside. Denies fever, chills, shortness of breath , chest discomfort, N/V/D. Pt reports rib discomfort secondary to coughing. Family History: Unchanged from Admission Social History: Unchanged from Admission Past Medical History: Unchanged from Admission Objective Active Medications: Acetaminophen (Tylenol Tab*) 650 mg PO Q4H PRN Reason: FEVER/PAIN Al Hydrox/Mg Hydrox/Simethicone (Maalox Plus*) 30 ml PO Q6H PRN Reason: INDIGESTION Albuterol (Ventolin 2.5 Mg/3 Ml Neb.Dionne*) 2.5 mg INH [id number] AWAKE PRN Reason: sob/wheezing Atenolol (Tenormin Tab*) 50 mg PO DAILY SAMINA Atorvastatin Calcium (Lipitor*) 10 mg PO DAILY SAMINA Citalopram Hydrobromide (Celexa Tab*) 10 mg PO DAILY SAMINA Guaifenesin (Robitussin*) 5 ml PO Q6H PRN Reason: COUGH Sodium Chloride (Ns 0.9% 1000 Ml*) 1,000 mls @ 150 mls/hr IV PER RATE SAMINA Magnesium Hydroxide (Milk Of Magnesia Liq*) 30 ml PO Q4H PRN Reason: CONSTIPATION Melatonin (Melatonin (Nf)) 3 mg PO BEDTIME PRN; Protocol Reason: SLEEP Warfarin Sodium (Coumadin Tab(*)) 3 mg PO DAILY@1700 [facility] Vital Signs - 8 hr 07/15/17 07/15/17 07/15/17 07:19 08:00 10:57 Temperature 97.2 F 98.0 F Pulse Rate 69 Respiratory 16 16 20 Rate Blood Pressure 131/54 146/73 (mmHg) O2 Sat by Pulse 96 97 Oximetry Oxygen Devices in Use Now: None Appearance: NAD, sitting up in a chair Ears/Nose/Mouth/Throat: Mucous Membranes Moist Respiratory: Symmetrical Chest Expansion and Respiratory Effort, Clear to Auscultation Cardiovascular: NL Sounds; No Murmurs; No JVD, RRR Abdominal: NL Sounds; No Tenderness; No Distention Extremities: No Edema Skin: No Rash or Ulcers Neurological: Alert and Oriented x 3, NL Muscle Strength and Tone Lines/Tubes/Other Access: Clean, Dry and Intact Peripheral IV - site benign Nutrition: Taking PO's Result Diagrams: 07/13/17 05:01 07/15/17 06:54 Additional Lab and Data: Microbiology and Other Data: Microbiology 07/12/17 18:00 Urine Culture - Final Urine No Growth (<1,000 CFU/mL) Assess/Plan/Problems-Billing Assessment: Mr. Jerome is a 77 yo male with PMH significant for Afib on Coumadin, HTN, anxiety, HLD p/w mechanical fall with inability to get up for 12 hours. Rhabo, recent URI symptoms on azithromycin. - Patient Problems (1) Rhabdomyolysis Code(s): M62.82 - RHABDOMYOLYSIS SNOMED Code(s): 911492543 Comment: - CK down to ~ 1300 from 01733 (2) HTN (hypertension) Code(s): I10 - ESSENTIAL (PRIMARY) HYPERTENSION SNOMED Code(s): 74487510 Comment: - Normotensive, SBP 120-140s - Continue atenolol (3) Atrial fibrillation, chronic Code(s): I48.2 - CHRONIC ATRIAL FIBRILLATION SNOMED Code(s): 307533221 Comment: - Continue coumadin and atenolol - More frequent INRs as outpatient. (4) HLD (hyperlipidemia) Code(s): E78.5 - HYPERLIPIDEMIA, UNSPECIFIED SNOMED Code(s): 25397706 Comment: - Continue atorvastatin (5) DVT prophylaxis Code(s): MBW1249 - SNOMED Code(s): 098280093 Comment: - Warfarin (6) Full code status Code(s): Z78.9 - OTHER SPECIFIED HEALTH STATUS SNOMED Code(s): 638207095 Status and Disposition: Inpatient. Stable for discharge to home today.
--- NOTE | 2017-07-16 15:30 | DS ---
CC: ZUHAIR Jeronimo, [place] * DISCHARGE SUMMARY: DATE OF ADMISSION: 07/12/17 DATE OF DISCHARGE: 07/15/17 ATTENDING PHYSICIAN: Dr. Brayan Corona * (dictated by Kavya Amin NP). PRIMARY CARE PROVIDER: ZUHAIR Jeronimo PRIMARY DIAGNOSES: 1. Rhabdomyolysis from a fall. 2. Fall. SECONDARY DIAGNOSES: 1. Atrial fibrillation. 2. Hypertension. 3. Hyperlipidemia. 4. Anxiety. STUDIES WHILE IN THE HOSPITAL: 1. Chest x-ray on 07/12/17. Radiologist's impression: No active cardiopulmonary disease. 2. Brain CT on 07/12/17. Radiologist's impression: No acute intracranial pathology. Moderate sinus mucosal inflammatory disease, with an air fluid level in the sphenoid sinus. In the correct clinical setting, this may represent acute sinusitis. DISCHARGE MEDICATIONS: Acetaminophen 650 mg oral every 4 hours as needed for fever or pain. Continued home medications: 1. Pravastatin 40 mg oral daily. 2. Atenolol 50 mg oral daily. 3. Celexa 10 mg oral daily. Changed home medications: Warfarin increased to 3 mg oral daily. Discontinued home medications: Azithromycin. HISTORY OF PRESENT ILLNESS/HOSPITAL COURSE: Mr. Jerome is a 77-year-old male with a past medical history significant for hyperlipidemia, atrial fibrillation , hypertension and anxiety, who presented to the emergency room after falling at home. The patient fell and laid on the floor for approximately 12 hours as he was unable to get up. He was able to call through the register in his apartment for help. The patient states that he was leaning forward to pick something up off the floor and lost his balance, falling, and was unable to get back up. He denied any head injury, loss of consciousness. He reported being unable to get to the phone. The patient had muscle and joint aches from being on the floor all night, complained of feeling tired. He denied any chest pain, shortness of breath, nausea, vomiting, diarrhea, abdominal pain, recent fevers, but reported occasional chills. He denied any dysuria. He reported having a cough for a few days. He was diagnosed with a bronchitis, started on azithromycin. He reported taking 2 days worth of azithromycin, continued to have productive cough with white to luna sputum. Due to his fall, he was brought to the emergency room for further evaluation. While in the emergency room, the patient had a brain CT that was negative. Chest x-ray that was negative. He had labs significant for total creatine kinase of 12,067, CK-MB of 54.2, troponin of 0.03. His INR was subtherapeutic at 1.29. He had a platelet count of 152. Hospitalists were asked to evaluate the patient for admission. While in the hospital, the patient was treated for his mild rhabdomyolysis with IV hydration. During his stay, his CK trended down to approximately 1200. His warfarin was increased and he was bridged on subcu heparin. His INR was therapeutic today at 2.15. He remained afebrile with no leukocytosis. He worked with physical therapy and felt that he was strong enough to go home. He did have an episode of hypokalemia, received potassium supplementation. Mr. Jerome is stable for discharge to home today. Vital signs are as follows : Temperature 98.0, heart rate 69, respiratory rate 20, O2 sat 97% on room air, blood pressure 146/73. DISCHARGE PLAN: Mr. Jerome will be discharged to home. Activity as tolerated. He should be on a heart healthy diet. As far as his rhabdomyolysis, he has been encouraged to continue to drink. He has been asked to work on fall prevention strategies at home such as removing loose rugs. His INR was subtherapeutic on admission. He has been titrated up. He has been asked to get a repeat [facility] 07[facility]18[facility]17 [facility] He has an appointment with Elly Doherty NP on 07/29/17 at 08:30 a.m. The patient has been asked to return to the emergency room for any chest pain, shortness of breath. POINTS FOR FOLLOWUP: I feel that the patient should have closer monitoring of his INRs as he came in subtherapeutic. Please encourage the patient to practice good fall prevention measures at home. This is a summarized report of a complex medical history and hospital stay. For further details, please see the entire medical record. TIME SPENT: Time for this discharge was approximately 50 minutes, greater than half of that was spent with the patient discussing discharge plans and instructions. CONDITION ON DISCHARGE: Stable. KAVYA AMIN, CARL [id number]/[facility] #: [id number] [facility]ENTERMarcos
== END 2017-07-15 14:00 | disposition home or self-care (01) | DRG 566 ==
LOC: ED 10:05 → MED 15:45
PROVIDERS: ADMIT Hospitalist; ATTEND Internal Medicine
DX: T79.6XXA Traumatic ischemia of muscle, initial encounter (principal); I48.2 Chronic atrial fibrillation; J20.9 Acute bronchitis, unspecified; E78.5 Hyperlipidemia, unspecified; W19.XXXA Unspecified fall, initial encounter; I10 Essential (primary) hypertension; Z79.01 Long term (current) use of anticoagulants; F41.9 Anxiety disorder, unspecified; Z98.1 Arthrodesis status; Z90.49 Acquired absence of other specified parts of digestive tract; Z88.5 Allergy status to narcotic agent; Z87.891 Personal history of nicotine dependence; Z79.82 Long term (current) use of aspirin; Z79.899 Other long term (current) drug therapy; R79.1 Abnormal coagulation profile; Z28.21 Immunization not carried out because of patient refusal
CPT/HCPCS: 36415; 70450; 71046; 80048; 80053; 81003; 81015; 82550; 82553; 83605; 84484; 85025; 85610; 87086; 87502; 93005; 94640; 94760; 99282; 99284; A9270-GY; J1644; J2930

== ENCOUNTER 2023-12-22 09:39 | Inpatient (IN) ==
[2023-12-22 12:32] LABS: ABS Basophils 0.2 10^3/uL (0.0-0.1); ABS Eosinophils 0.1 10^3/uL (0.0-0.5); ABS Lymphocytes 1.9 10^3/uL (1.0-4.8); ABS Monocytes 0.9 10^3/uL (0.0-1.1); ABS Neutrophils 8.3 10^3/uL (1.5-7.6); ABS Nucleated RBC 0.01 10^3/ul; Hematocrit 46.3 % (38-53); Hemoglobin 15.4 g/dL (13.2-16.3); Lymphocyte % 16.6 %; Mean Corpuscular Hemoglobin 30.9 pg (27-33); Mean Corpuscular Hgb Conc 33.3 g/dL (31-36); Mean Corpuscular Volume 92.8 fL (80-97); Mean Platelet Volume 9.1 fL (7.5-11.2); Nucleated Red Blood Cells % 0.1 %/100WBC (0.0-0.8); Platelet Count 193 10^3/uL (150-450); Red Blood Count 4.99 10^6/uL (4.06-5.63); Red Cell Distribution Width 14.4 % (12-17); White Blood Count 11.4 10^3/uL (3.6-10.2)
[2023-12-22] MEDS: Acetaminophen IV 1 GM/100ML 1,000 MG/100 ML BAG IV ONE (12:34)
[2023-12-22] MEDS: Ondansetron 4 mg VIAL 2 MG/ML 2 ml VIAL IV ONE (12:46)
[2023-12-22] MEDS: fentaNYL 100 mcg/2 ml 50 MCG/ML VIAL IV SLOW PU ONE (12:46)
[2023-12-22 12:52] LABS: Activated Partial Thrombo Time 29.3 seconds (26.0-38.0); INR 1.71 (0.83-1.13)
[2023-12-22 13:57] LABS: Albumin 4.4 g/dL (3.2-5.2); Albumin/Globulin Ratio 1.3 (1-3); Calcium 9.8 mg/dL (8.6-10.3); Creatinine, Serum 1.16 mg/dL (0.67-1.17); Globulin 3.3 g/dL (2-4); Potassium 3.6 mmol/L (3.5-5.0); Total Bilirubin 0.6 mg/dL (0.2-1.0); Total Protein 7.7 g/dL (6.4-8.9); eGFR CKD-EPI 62.1 (>60)
[2023-12-22] MEDS: Morphine 2 MG/ML SYRINGE IV ONE (18:13)
[2023-12-22] MEDS: HYDROmorphone 0.5 MG/0.5 ML SYRINGE IV SLOW PU PRN (18:46)
[2023-12-22] MEDS: CMCS: Pravastatin 20 mg TAB (NF) PO SCH (21:27)
[2023-12-23 06:11] LABS: ABS Basophils 0.1 10^3/uL (0.0-0.1); ABS Eosinophils 0.3 10^3/uL (0.0-0.5); ABS Lymphocytes 1.2 10^3/uL (1.0-4.8); ABS Monocytes 0.6 10^3/uL (0.0-1.1); ABS Neutrophils 4.6 10^3/uL (1.5-7.6); ABS Nucleated RBC 0.01 10^3/ul; Hematocrit 44.9 % (38-53); Hemoglobin 15.3 g/dL (13.2-16.3); Mean Corpuscular Hgb Conc 34.1 g/dL (31-36); Mean Corpuscular Volume 93.6 fL (80-97); Mean Platelet Volume 9.5 fL (7.5-11.2); Nucleated Red Blood Cells % 0.1 %/100WBC (0.0-0.8); Platelet Count 175 10^3/uL (150-450); Red Blood Count 4.79 10^6/uL (4.06-5.63); Red Cell Distribution Width 14.3 % (12-17); White Blood Count 6.8 10^3/uL (3.6-10.2)
[2023-12-23 06:27] LABS: Calcium 9.7 mg/dL (8.6-10.3); Creatinine, Serum 1.3 mg/dL (0.67-1.17); Magnesium 2.4 mg/dL (1.9-2.7); Phosphorus 4.6 mg/dL (2.5-5.0); Potassium 5.6 mmol/L (3.5-5.0); eGFR CKD-EPI 54.2 (>60)
[2023-12-23] MEDS: Enoxaparin 40 MG/0.4 ML SYR SUBCUT ONE (09:01)
[2023-12-23] MEDS: NS 0.9% 500 ml BAG 500 ML IV ONE (10:20)
[2023-12-23] MEDS: SODIUM ZIRCONIUM CYCLOSILICATE 10 GM PACKET PO ONE (15:25)
[2023-12-23 15:44] LABS: Urine Appearance Turbid; Urine Bilirubin Negative (Negative); Urine Blood Trace (Negative); Urine Color Yellow; Urine Glucose Negative (Negative); Urine Ketones Negative (Negative); Urine Nitrite Negative (Negative); Urine Protein Trace (Negative); Urine Specific Gravity 1.027 (1.002-1.030); Urine Urobilinogen 1+ (Negative); Urine pH 5.5 (5.0-8.0)
[2023-12-23] MEDS: Iodixanol (CONTRAST) 320 MG/ML 100 ML SDV IV ONE (15:51)
[2023-12-23 16:06] LABS: Calcium 8.7 mg/dL (8.6-10.3); Creatinine, Serum 1.32 mg/dL (0.67-1.17); Potassium 4.5 mmol/L (3.5-5.0); eGFR CKD-EPI 53.2 (>60)
[2023-12-23] MEDS: Azithromycin 500 mg/250 ml NS 500 MG/250 ML BAG IVPB SCH (17:52)
[2023-12-23] MEDS: cefTRIAXone 1 gm/50 mL D5W 1 GM/50 ML BAG IV SCH (17:52)
[2023-12-23] MEDS: Doxycycline 100 MG in NS 0.9% 250 ML BAG IVPB SCH (18:46)
[2023-12-23] MEDS: Lidocaine 2% JELLY 6 ML Topical TOPICAL ONE (20:43)
[2023-12-24 06:24] LABS: ABS Eosinophils 0.3 10^3/uL (0.0-0.5); ABS Lymphocytes 1.1 10^3/uL (1.0-4.8); ABS Monocytes 0.7 10^3/uL (0.0-1.1); ABS Neutrophils 5.8 10^3/uL (1.5-7.6); Eosinophil % 3.8 %; Hematocrit 39.9 % (38-53); Hemoglobin 13.3 g/dL (13.2-16.3); Lymphocyte % 13.5 %; Mean Corpuscular Hgb Conc 33.3 g/dL (31-36); Mean Corpuscular Volume 93.1 fL (80-97); Mean Platelet Volume 9.6 fL (7.5-11.2); Platelet Count 149 10^3/uL (150-450); Red Blood Count 4.28 10^6/uL (4.06-5.63); Red Cell Distribution Width 14.3 % (12-17)
[2023-12-24 06:41] LABS: Calcium 8.8 mg/dL (8.6-10.3); Creatinine, Serum 1.09 mg/dL (0.67-1.17); Potassium 4.2 mmol/L (3.5-5.0); eGFR CKD-EPI 66.9 (>60)
[2023-12-24] MEDS: Acetaminophen IV 1 GM/100ML 1,000 MG/100 ML BAG IV PRN (08:45)
[2023-12-24] MEDS: Enoxaparin 40 MG/0.4 ML SYR SUBCUT ONE (08:46)
[2023-12-24] MEDS: Ondansetron 4 mg VIAL 2 MG/ML 2 ml VIAL IV ONE (20:33)
[2023-12-25 06:20] LABS: ABS Eosinophils 0.1 10^3/uL (0.0-0.5); ABS Monocytes 0.6 10^3/uL (0.0-1.1); ABS Neutrophils 6.4 10^3/uL (1.5-7.6); ABS Nucleated RBC 0.01 10^3/ul; Eosinophil % 1.5 %; Hematocrit 39.6 % (38-53); Hemoglobin 13.2 g/dL (13.2-16.3); Lymphocyte % 12.5 %; Mean Corpuscular Hgb Conc 33.2 g/dL (31-36); Mean Corpuscular Volume 93.4 fL (80-97); Mean Platelet Volume 9.1 fL (7.5-11.2); Nucleated Red Blood Cells % 0.1 %/100WBC (0.0-0.8); Platelet Count 159 10^3/uL (150-450); Red Blood Count 4.24 10^6/uL (4.06-5.63); Red Cell Distribution Width 13.8 % (12-17); White Blood Count 8.1 10^3/uL (3.6-10.2)
[2023-12-25 06:32] LABS: Calcium 8.9 mg/dL (8.6-10.3); Creatinine, Serum 1.09 mg/dL (0.67-1.17); Potassium 4.3 mmol/L (3.5-5.0); eGFR CKD-EPI 66.9 (>60)
[2023-12-25] MEDS ORDERED: Propofol 10 MG/ML 20 ML BTL ONE (11:27)
[2023-12-25] MEDS ORDERED: Rocuronium 50 mg VIAL 10 mg/ml 5 ml VIAL (50 mg) ONE (11:27)
[2023-12-25] MEDS ORDERED: Midazolam 2 mg/2 ml VIAL 1 mg/ml 2 ml VIAL (2 mg) ONE (11:27)
[2023-12-25] MEDS ORDERED: Dexamethasone IV 4 MG/ML VIAL 1 ml VIAL ONE (11:27)
[2023-12-25] MEDS ORDERED: Lidocaine 2% PF 5 ML VIAL ONE (11:27)
[2023-12-25] MEDS ORDERED: Ondansetron 4 mg VIAL 2 MG/ML 2 ml VIAL ONE (11:27)
[2023-12-25] MEDS ORDERED: fentaNYL 250 mcg/5 ml 50 MCG/ML 5 ml VIAL (250 MCG) ONE (11:28)
[2023-12-25] MEDS ORDERED: ceFAZolin VIAL VIAL ONE ×2 (14:43)
[2023-12-25] MEDS ORDERED: Haloperidol 5 mg/ml SDV IV/IM 5 MG/ML AMP ONE (15:51)
[2023-12-25] MEDS: Haloperidol 5 mg/ml SDV IV/IM 5 MG/ML AMP IV SLOW PU ONE (15:53)
[2023-12-25] MEDS: ceFAZolin 1 GM ADVAN 1 GM in NS 0.9% 50 ML 50 ML IVPB SCH (22:26)
[2023-12-26] MEDS: Haloperidol 5 mg/ml SDV IV/IM 5 MG/ML AMP IV SLOW PU ONE (02:09)
[2023-12-26 07:34] LABS: Anion Gap 13 mmol/L (2-16); Blood Urea Nitrogen 16 mg/dL (6-24); CO2 Carbon Dioxide 17 mmol/L (22-32); Calcium 8.7 mg/dL (8.6-10.3); Chloride 105 mmol/L (101-111); Glucose 158 mg/dL (70-100); Sodium 135 mmol/L (135-145); eGFR CKD-EPI 74.2 (>60)
[2023-12-26 08:13] LABS: ABS Basophils 0.1 10^3/uL (0.0-0.1); ABS Lymphocytes 0.5 10^3/uL (1.0-4.8); ABS Monocytes 0.5 10^3/uL (0.0-1.1); ABS Neutrophils 11.2 10^3/uL (1.5-7.6); Hematocrit 36.4 % (38-53); Hemoglobin 12.4 g/dL (13.2-16.3); Lymphocyte % 3.7 %; Mean Corpuscular Hemoglobin 31.5 pg (27-33); Mean Corpuscular Hgb Conc 33.9 g/dL (31-36); Mean Corpuscular Volume 92.8 fL (80-97); Mean Platelet Volume 8.6 fL (7.5-11.2); Platelet Count 178 10^3/uL (150-450); Red Blood Count 3.92 10^6/uL (4.06-5.63); White Blood Count 12.2 10^3/uL (3.6-10.2)
[2023-12-26] MEDS: Enoxaparin 30 MG/0.3 ML SYR SUBCUT SCH (08:24)
[2023-12-26] MEDS: Acetaminophen IV 1 GM/100ML 1,000 MG/100 ML BAG IV SCH (14:23)
[2023-12-27 06:31] LABS: ABS Monocytes 0.6 10^3/uL (0.0-1.1); ABS Neutrophils 8.4 10^3/uL (1.5-7.6); ABS Nucleated RBC 0.01 10^3/ul; Hematocrit 40.9 % (38-53); Hemoglobin 13.5 g/dL (13.2-16.3); Lymphocyte % 9.7 %; Mean Corpuscular Volume 93.9 fL (80-97); Mean Platelet Volume 9.3 fL (7.5-11.2); Nucleated Red Blood Cells % 0.1 %/100WBC (0.0-0.8); Platelet Count 197 10^3/uL (150-450); Red Blood Count 4.36 10^6/uL (4.06-5.63); Red Cell Distribution Width 14.3 % (12-17)
[2023-12-27 06:50] LABS: Calcium 8.7 mg/dL (8.6-10.3); Creatinine, Serum 0.91 mg/dL (0.67-1.17); Magnesium 2.2 mg/dL (1.9-2.7); Potassium 3.8 mmol/L (3.5-5.0); eGFR CKD-EPI 83.1 (>60)
[2023-12-27] MEDS: Potassium Chlor 20 meq TAB.ER PO ONE (08:52)
[2023-12-29 06:39] LABS: ABS Basophils 0.1 10^3/uL (0.0-0.1); ABS Eosinophils 0.1 10^3/uL (0.0-0.5); ABS Lymphocytes 1.1 10^3/uL (1.0-4.8); ABS Monocytes 0.7 10^3/uL (0.0-1.1); ABS Neutrophils 6.3 10^3/uL (1.5-7.6); ABS Nucleated RBC 0.01 10^3/ul; Eosinophil % 1.4 %; Hemoglobin 14.3 g/dL (13.2-16.3); Lymphocyte % 13.8 %; Mean Corpuscular Hemoglobin 32.4 pg (27-33); Mean Corpuscular Hgb Conc 34.8 g/dL (31-36); Mean Corpuscular Volume 92.9 fL (80-97); Mean Platelet Volume 8.6 fL (7.5-11.2); Nucleated Red Blood Cells % 0.2 %/100WBC (0.0-0.8); Platelet Count 219 10^3/uL (150-450); Red Blood Count 4.41 10^6/uL (4.06-5.63); Red Cell Distribution Width 14.3 % (12-17); White Blood Count 8.3 10^3/uL (3.6-10.2)
[2023-12-29 07:59] LABS: Calcium 9.2 mg/dL (8.6-10.3); Creatinine, Serum 0.85 mg/dL (0.67-1.17); Potassium 3.5 mmol/L (3.5-5.0); eGFR CKD-EPI 85.7 (>60)
[2023-12-30 05:48] LABS: ABS Basophils 0.1 10^3/uL (0.0-0.1); ABS Eosinophils 0.3 10^3/uL (0.0-0.5); ABS Lymphocytes 1.7 10^3/uL (1.0-4.8); ABS Monocytes 0.7 10^3/uL (0.0-1.1); ABS Neutrophils 4.1 10^3/uL (1.5-7.6); Eosinophil % 4.5 %; Hematocrit 40.4 % (38-53); Hemoglobin 13.5 g/dL (13.2-16.3); Lymphocyte % 24.7 %; Mean Corpuscular Hemoglobin 31.1 pg (27-33); Mean Corpuscular Hgb Conc 33.4 g/dL (31-36); Mean Corpuscular Volume 93.3 fL (80-97); Mean Platelet Volume 8.6 fL (7.5-11.2); Nucleated Red Blood Cells % 0.1 %/100WBC (0.0-0.8); Platelet Count 235 10^3/uL (150-450); Red Blood Count 4.33 10^6/uL (4.06-5.63); Red Cell Distribution Width 14.2 % (12-17); White Blood Count 6.9 10^3/uL (3.6-10.2)
[2023-12-30 06:06] LABS: Creatinine, Serum 0.84 mg/dL (0.67-1.17); Magnesium 2.1 mg/dL (1.9-2.7); Potassium 3.6 mmol/L (3.5-5.0)
[2023-12-30 09:45] LABS: Rapid COVID-19 Molecular Undetected (Undetected)
[2023-12-30 10:47] VITALS: BP 146/80
== END 2023-12-30 12:30 | DRG 480 ==
LOC: ED 09:39 → EDHOLD 15:07 → SUATTDRO 15:07 → SSU 17:00
PROVIDERS: ADMIT Internal Medicine; ATTEND Internal Medicine

== ENCOUNTER 2024-03-26 17:31 | Inpatient (IN) ==
[2024-03-26] MEDS: Lactated Ringers 1000 ml BAG 1,000 ML IV ONE (17:46)
[2024-03-26] MEDS ORDERED: Dextrose 50% Syringe 50 ml 25 GM/50 ML SYRINGE ONE (17:49)
[2024-03-26] MEDS: Dextrose 50% Syringe 50 ml 25 GM/50 ML SYRINGE IV PUSH PRN (17:57)
[2024-03-26 18:01] LABS: ABS Basophils 0.1 10^3/uL (0.0-0.1); ABS Eosinophils 0.2 10^3/uL (0.0-0.5); ABS Lymphocytes 1.5 10^3/uL (1.0-4.8); ABS Monocytes 0.7 10^3/uL (0.0-1.1); ABS Neutrophils 7.3 10^3/uL (1.5-7.6); Eosinophil % 2.2 %; Hematocrit 38.9 % (38-53); Hemoglobin 12.9 g/dL (13.2-16.3); Lymphocyte % 15.2 %; Mean Corpuscular Hemoglobin 30.3 pg (27-33); Mean Corpuscular Hgb Conc 33.2 g/dL (31-36); Mean Corpuscular Volume 91.1 fL (80-97); Mean Platelet Volume 9.7 fL (7.5-11.2); Platelet Count 219 10^3/uL (150-450); Red Blood Count 4.27 10^6/uL (4.06-5.63); Red Cell Distribution Width 14.4 % (12-17); White Blood Count 9.9 10^3/uL (3.6-10.2)
[2024-03-26 19:51] LABS: Albumin 4.4 g/dL (3.2-5.2); Albumin/Globulin Ratio 1.2 (1-3); Calcium 9.9 mg/dL (8.6-10.3); Creatinine, Serum 1.29 mg/dL (0.67-1.17); Globulin 3.7 g/dL (2-4); Magnesium 2.3 mg/dL (1.9-2.7); Potassium 4.1 mmol/L (3.5-5.0); Total Bilirubin 2.2 mg/dL (0.2-1.0); Total Protein 8.1 g/dL (6.4-8.9); eGFR CKD-EPI 54.7 (>60)
[2024-03-26] MEDS: Iodixanol 320 (CONTRAST) 100 ML SDV IV ONE (21:07)
[2024-03-27 01:05] LABS: TSH Ultra Thyroid Stim Horm 4.31 mcIU/mL (0.34-5.60)
[2024-03-27 01:16] LABS: Folate 11.1 ng/mL (5.90-24.80)
[2024-03-27 01:20] LABS: Vitamin D Total 25(OH) 24.1 ng/mL (20-50)
[2024-03-27] MEDS: Lactated Ringers 1000 ml BAG 1,000 ML IV SCH (01:47)
[2024-03-27] MEDS: Acetaminophen IV 1 GM/100ML 1,000 MG/100 ML BAG IV ONE (09:15)
[2024-03-27 09:38] LABS: ABS Basophils 0.1 10^3/uL (0.0-0.1); ABS Eosinophils 0.4 10^3/uL (0.0-0.5); ABS Monocytes 0.8 10^3/uL (0.0-1.1); ABS Neutrophils 8.8 10^3/uL (1.5-7.6); Eosinophil % 3.6 %; Hematocrit 36.5 % (38-53); Lymphocyte % 9.4 %; Mean Corpuscular Hemoglobin 30.2 pg (27-33); Mean Corpuscular Volume 91.5 fL (80-97); Mean Platelet Volume 9.1 fL (7.5-11.2); Platelet Count 190 10^3/uL (150-450); Red Blood Count 3.98 10^6/uL (4.06-5.63); Red Cell Distribution Width 14.2 % (12-17); White Blood Count 11.1 10^3/uL (3.6-10.2)
[2024-03-27 09:53] LABS: INR 1.4 (0.85-1.14)
[2024-03-27 10:32] LABS: Creatinine, Serum 0.88 mg/dL (0.67-1.17); Potassium 3.8 mmol/L (3.5-5.0); eGFR CKD-EPI 84.8 (>60)
[2024-03-27 11:13] LABS: Urine Appearance Clear; Urine Bilirubin Negative (Negative); Urine Blood Negative (Negative); Urine Color Yellow; Urine Glucose Trace (Negative); Urine Ketones 2+ (Negative); Urine Nitrite Negative (Negative); Urine Protein Trace (Negative); Urine Specific Gravity 1.037 (1.002-1.030); Urine Urobilinogen 1+ (Negative); Urine pH 5.5 (5.0-8.0)
[2024-03-27 11:25] LABS: Urine Benzodiazepine Screen None Detected (None Detect); Urine Cannabinoids Screen None Detected (None Detect); Urine Opiates Screen None Detected (None Detect)
[2024-03-27] MEDS: Gadoteridol (CONTRAST) 279.3 MG/ML 10 ML IV ONE (14:53)
[2024-03-27] MEDS ORDERED: Lactated Ringers 1000 ml BAG 1,000 ML IV SCH (17:26)
[2024-03-28 06:57] LABS: Hematocrit 33.6 % (38-53); Hemoglobin 11.3 g/dL (13.2-16.3); Mean Corpuscular Hemoglobin 30.4 pg (27-33); Mean Corpuscular Hgb Conc 33.6 g/dL (31-36); Mean Corpuscular Volume 90.5 fL (80-97); Mean Platelet Volume 9.4 fL (7.5-11.2); Platelet Count 170 10^3/uL (150-450); Red Blood Count 3.71 10^6/uL (4.06-5.63); Red Cell Distribution Width 14.4 % (12-17); White Blood Count 6.5 10^3/uL (3.6-10.2)
[2024-03-28 07:46] LABS: Albumin 3.3 g/dL (3.2-5.2); Albumin/Globulin Ratio 1.1 (1-3); C Reactive Protein 86.24 mg/L (<8.01); Calcium 8.6 mg/dL (8.6-10.3); Creatinine, Serum 0.82 mg/dL (0.67-1.17); Globulin 2.9 g/dL (2-4); Potassium 3.9 mmol/L (3.5-5.0); Total Protein 6.2 g/dL (6.4-8.9); eGFR CKD-EPI 86.6 (>60)
[2024-03-28 08:38] LABS: Erythrocyte Sed Rate 35 mm/Hr (0-19)
[2024-03-28 13:31] LABS: TSH Ultra Thyroid Stim Horm 4.46 mcIU/mL (0.34-5.60)
[2024-03-28 13:42] LABS: Folate 5.66 ng/mL (5.90-24.80)
[2024-03-28] MEDS: Thiamine 100 MG/ML 2 ml VIAL 500 MG in NS 0.9% 250 ml 250 ML IV SCH (14:37)
[2024-03-29 06:16] LABS: ABS Basophils 0.1 10^3/uL (0.0-0.1); ABS Eosinophils 0.6 10^3/uL (0.0-0.5); ABS Lymphocytes 1.4 10^3/uL (1.0-4.8); ABS Monocytes 0.6 10^3/uL (0.0-1.1); ABS Neutrophils 3.1 10^3/uL (1.5-7.6); Eosinophil % 10.6 %; Hematocrit 32.9 % (38-53); Lymphocyte % 23.9 %; Mean Corpuscular Hemoglobin 30.3 pg (27-33); Mean Corpuscular Hgb Conc 33.5 g/dL (31-36); Mean Corpuscular Volume 90.5 fL (80-97); Mean Platelet Volume 9.5 fL (7.5-11.2); Platelet Count 177 10^3/uL (150-450); Red Blood Count 3.63 10^6/uL (4.06-5.63); Red Cell Distribution Width 14.3 % (12-17); White Blood Count 5.7 10^3/uL (3.6-10.2)
[2024-03-29 06:31] LABS: Calcium 8.6 mg/dL (8.6-10.3); Creatinine, Serum 1.05 mg/dL (0.67-1.17); Magnesium 1.9 mg/dL (1.9-2.7); Phosphorus 3.2 mg/dL (2.5-5.0); Potassium 3.9 mmol/L (3.5-5.0)
[2024-03-30 05:35] LABS: ABS Eosinophils 0.4 10^3/uL (0.0-0.5); ABS Lymphocytes 1.3 10^3/uL (1.0-4.8); ABS Monocytes 0.6 10^3/uL (0.0-1.1); Hematocrit 33.7 % (38-53); Hemoglobin 11.1 g/dL (13.2-16.3); Lymphocyte % 20.3 %; Mean Corpuscular Hemoglobin 29.9 pg (27-33); Mean Corpuscular Hgb Conc 32.9 g/dL (31-36); Mean Corpuscular Volume 90.8 fL (80-97); Mean Platelet Volume 9.5 fL (7.5-11.2); Nucleated Red Blood Cells % 0.1 %/100WBC (0.0-0.8); Platelet Count 202 10^3/uL (150-450); Red Blood Count 3.71 10^6/uL (4.06-5.63); Red Cell Distribution Width 14.2 % (12-17); White Blood Count 6.3 10^3/uL (3.6-10.2)
[2024-03-30 05:46] LABS: Calcium 8.4 mg/dL (8.6-10.3); Creatinine, Serum 0.85 mg/dL (0.67-1.17); Magnesium 1.9 mg/dL (1.9-2.7); Phosphorus 3.2 mg/dL (2.5-5.0); Potassium 3.6 mmol/L (3.5-5.0); eGFR CKD-EPI 85.7 (>60)
[2024-03-30 09:31] LABS: Erythrocyte Sed Rate 22 mm/Hr (0-19)
[2024-03-30] MEDS: Cholecalciferol (VIT D3) 1,000 unit TAB PO SCH (09:31)
[2024-03-31 06:35] LABS: ABS Basophils 0.1 10^3/uL (0.0-0.1); ABS Eosinophils 0.5 10^3/uL (0.0-0.5); ABS Lymphocytes 1.5 10^3/uL (1.0-4.8); ABS Monocytes 0.6 10^3/uL (0.0-1.1); ABS Neutrophils 3.8 10^3/uL (1.5-7.6); ABS Nucleated RBC 0.01 10^3/ul; Eosinophil % 7.7 %; Hemoglobin 10.9 g/dL (13.2-16.3); Lymphocyte % 22.8 %; Mean Corpuscular Hemoglobin 30.5 pg (27-33); Mean Corpuscular Volume 92.3 fL (80-97); Mean Platelet Volume 9.1 fL (7.5-11.2); Nucleated Red Blood Cells % 0.1 %/100WBC (0.0-0.8); Platelet Count 197 10^3/uL (150-450); Red Blood Count 3.57 10^6/uL (4.06-5.63); Red Cell Distribution Width 14.4 % (12-17); White Blood Count 6.5 10^3/uL (3.6-10.2)
[2024-03-31 07:15] LABS: Calcium 8.7 mg/dL (8.6-10.3); Creatinine, Serum 0.82 mg/dL (0.67-1.17); Magnesium 1.8 mg/dL (1.9-2.7); Phosphorus 3.1 mg/dL (2.5-5.0); Potassium 3.9 mmol/L (3.5-5.0); eGFR CKD-EPI 86.6 (>60)
[2024-03-31] MEDS: Magnesium Sulfate 2 gm BAG 2 GM/50 ML BAG IVPB ONE (08:39)
[2024-04-01 07:31] LABS: ABS Basophils 0.1 10^3/uL (0.0-0.1); ABS Eosinophils 0.4 10^3/uL (0.0-0.5); ABS Lymphocytes 1.4 10^3/uL (1.0-4.8); ABS Monocytes 0.7 10^3/uL (0.0-1.1); ABS Neutrophils 5.4 10^3/uL (1.5-7.6); ABS Nucleated RBC 0.01 10^3/ul; Eosinophil % 4.9 %; Hematocrit 33.4 % (38-53); Hemoglobin 11.3 g/dL (13.2-16.3); Lymphocyte % 17.3 %; Mean Corpuscular Hemoglobin 30.5 pg (27-33); Mean Corpuscular Hgb Conc 33.9 g/dL (31-36); Mean Corpuscular Volume 90.2 fL (80-97); Mean Platelet Volume 9.2 fL (7.5-11.2); Nucleated Red Blood Cells % 0.1 %/100WBC (0.0-0.8); Platelet Count 241 10^3/uL (150-450); Red Blood Count 3.71 10^6/uL (4.06-5.63); Red Cell Distribution Width 14.7 % (12-17); White Blood Count 7.9 10^3/uL (3.6-10.2)
[2024-04-01 07:53] LABS: Calcium 8.6 mg/dL (8.6-10.3); Creatinine, Serum 0.8 mg/dL (0.67-1.17); Magnesium 2.1 mg/dL (1.9-2.7); Phosphorus 3.7 mg/dL (2.5-5.0); Potassium 3.8 mmol/L (3.5-5.0); eGFR CKD-EPI 87.3 (>60)
[2024-04-01] MEDS: Potassium Chlor 20 meq TAB.ER PO ONE (13:51)
[2024-04-01 23:55] LABS: Rapid COVID-19 Molecular Undetected (Undetected)
[2024-04-02] MEDS: Magnesium Hydroxide LIQ 30 ML UDC PO ONE (08:11)
[2024-04-02] MEDS: Senna TAB 8.6 mg TAB PO ONE (08:11)
[2024-04-02] MEDS: Polyethylene Glycol 3350 17 GM PACKET PO SCH (08:12)
[2024-04-02 09:00] VITALS: BP 132/69
== END 2024-04-02 10:45 | DRG 92 ==
LOC: ED 17:31 → EDHOLD 17:31 → SUATTDRO 22:46 → MED 03-27 03:40
PROVIDERS: ADMIT Internal Medicine; ATTEND Internal Medicine